=== PATIENT | male | born 1955 ===

== ENCOUNTER 2023-08-15 16:58 | Emergency (ER) | payer MEDICARE, OTHER, SELFPAY ==
[2023-08-15 17:01] VITALS: BP 149/90
--- NOTE | 2023-08-15 17:19 | ED.GENMED ---
History of Present Illness
General
Chief Complaint: Weakness
Source: patient and spouse
Exam Limitations: none
Time Seen by Provider: 08/15/23 17:07
Travel History
Have you had any contact with someone who has COVID-19?: No
Do you have any symptoms of coronavirus? Fever > 100 degrees, chills, cough, shortness of breath, sore throat, loss of taste or smell, muscle aches, or headache?: No
History of Present Illness
History of Present Illness:
68-year-old male with general fatigue and weakness progressive over 2 weeks. Very nonspecific symptoms. 10 pound weight loss. Some night sweats. Denies fever chest pain short of breath abdominal pain. 1 episode of diarrhea per day loose. No
blood or mucus. Weakness has progressed significantly over the last 2 to 3 days
Past History
Past History
ED Past Medical History: HTN, Hypercholesterolemia, NIDDM and Other (Pancreatic issues)
Review of Systems
Review of Systems
All Other Systems: Not applicable
Constitutional: Reports weight loss, fatigue and night sweats; Denies fever or chills
Respiratory: Reports no symptoms
Cardiac: Reports no symptoms
Phy Exam
Physical Exam
Physical Exam:
GENERAL: Alert and oriented in no apparent distress
EYE: Orbits normal.
NECK: Supple, no thyroid palpable
ENT: Pharynx without erythema
CARDIAC: Regular rate and rhythm without any obvious murmurs.
LUNGS: Clear breath sounds,normal
ABDOMEN: Soft, without focal tenderness or distention
NEUROLOGICAL: Alert and oriented , grossly non-focal. Good upper and lower extremity strength. Decreased patellar reflexes but symmetrical
SKIN: Warm and dry, small open scabs to both knees anteriorly. No petechia or purpura. Scabs are apparently chronic from itching per the
MUSCULOSKELETAL: No edema,no deformity.Good color
PSYCH: Normal and appropriate interaction.
Course
Orders/Labs/Results
Orders:
Orders
08/15/23 17:17
Cardiac Monitoring- Treatment ONCE
IV Insert/Care/Rem.- Treatment PRN
0.9% Sodium Chloride 1000 ml [Nss] 1,000 ml IV BOLUS
08/15/23 17:18
EKG [Electrocardiogram (*1)] Urgent
Reason for Study: Fatigue / Weakness
EKG- Treatment ONCE
08/15/23 17:22
CRP [C-Reactive Protein] Urgent
Complete Blood Count/With Diff Urgent
Comprehensive Metabolic Panel Urgent
D-Dimer Urgent
ESR [Erythrocyte Sed Rate] Urgent
Lipase Urgent
TSH Reflex To Free T4 Urgent
Troponin I Urgent
08/15/23 18:34
Iohexol [Omnipaque] See Protocol PO NOW STA
CXR2 [CR Chest - 2 Views ] Urgent
Comment:
Reason For Exam: Anorexia/weight loss/elevated lipase
08/15/23 18:59
Urinalysis Reflex To Culture Urgent
Date Specimen was Collected: 08/15/23
Time Specimen was Collected: 18:58
08/15/23 19:13
Iohexol [Omnipaque] See Protocol PO NOW STA
08/15/23 19:14
Iohexol [Omnipaque] 50 ml .ROUTE .STK-MED ONE
08/15/23 19:51
CT Abd/pel W Iv And Oral Contr Urgent
Comment:
Reason For Exam: anorexia/diarrhea
Abnormal Lab Results
08/15/23 08/15/23
17:22 18:59
MCV 79.7 L fL
(80.0-94.0)
Absolute Monos (auto) 0.7 H 10^3/uL
(0.1-0.6)
Lymphocytes % 17.5 L %
(20.5-51.1)
BUN 31 H mg/dl
(9-20)
Glucose 102 H mg/dl
(70-99)
Lipase 451 H U/L
(23-300)
Urine Ketones Trace A
(Negative)
Urine Glucose Trace A
(Negative)
08/15/23 17:22
08/15/23 17:22
Vital Signs
Initial and Last Documented VS:
Initial Vital Signs
Temp Pulse Resp BP Pulse Ox
98.3 F 89 16 149/90 98
08/15/23 17:01 08/15/23 17:01 08/15/23 17:01 08/15/23 17:01 08/15/23 17:01
Last Documented Vital Signs
Temp Pulse Resp BP Pulse Ox
98.3 F 86 18 151/85 96
08/15/23 17:01 08/15/23 19:30 08/15/23 19:30 08/15/23 19:00 08/15/23 19:30
MDM/Problems Addressed
Differential Diagnosis Includes:
Patient with a large differential for general weakness fatigue night sweats weight loss. Doubt cardiac but will be checked. Very low suspicion for pulmonary emboli. No shortness of breath or pleuritic pain. No leg pain or swelling. No risk
factors for PE. Patient has a nontender abdomen. No obvious infectious issues although this has to be entertained. Electrolyte issue. Thyroid issue. Workup is all in prior
*Radiology
Radiology exam reviewed: radiology read reviewed (Mild changes head of the pancreas. No other changes noted.)
*Pulse Oximetry
Patient hypoxic: no
*EKG
Interpreted by ED Provider?: Yes
Interpretation: abnormal
Comparison EKG: no comparison EKG present
Heart Rate: 85
Rhythm: sinus and PVC's
Mounds: normal axis
Interval: normal interval
QRS Pattern: normal QRS
Ischemia: no ischemia
*Critical Care Note
Total Time (30-74mins, 75-104mins- exclusive of procedures): Not Applicable
Update Note
Update Note:
Patient is remained medically stable and nontoxic. No obvious etiology for his rectocele weight loss night sweats. No indication for admission or further testing at this time. Copy of CT report given to patient to review with her
sales consultant insurance. He did have an MRI done last summer. Stressed that this needs follow-up.
ED Attending Note
-
Portions of this chart may have been created with voice recognition software.� Occasional wrong word or��sound alike� substitutions may have occurred due to the inherent limitations of voice recognition software.
Discharge Plan
Departure
Patient Disposition: Home (Routine Discharge)
Date of Disposition: 08/15/23
Time of Disposition: 22:40
Patient with high blood pressure during this ER visit?: Yes
Discharge Problem:
Fatigue anorexia, Inflammatory changes head of the pancrea
Instructions: Generalized Weakness (DC), BLOOD PRESSURE
Prescriptions:
No Action
atorvastatin [Lipitor] 10 mg Tablet
10 mg PO Q48H
glimepiride 2 mg Tablet
2 mg PO QPM
nifedipine [Nifedical XL] 60 mg Tablet Extended Release 24hr
60 mg PO QPM
repaglinide 0.5 mg Tablet
0.5 mg PO AC
timolol 0.5 % Drops
1 drp BOTH EYES DAILY
pantoprazole [Protonix] 40 mg Tablet,Delayed Release (Dr/Ec)
40 mg PO DAILYPRN PRN (Reason: gerd)
metformin 1,000 mg Tablet
1,000 mg PO BID
losartan 100 mg Tablet
100 mg PO DAILY
Creon 36,000-114,000- 180,000 unit Capsule,Delayed Release(Dr/Ec)
2 cap PO AC
Referrals:
UNKNOWN - PT DOES,NOT KNOW [Family Provider] -
Activity Restrictions/Additional Instructions:
As discussed, either get a repeat MRI as recommended or discussed by our radiologist or at minimal discussed this report with your sales consultant insurance
Close follow-up with your primary physician
Interventions
Interventions:
*Risk Screen - Suicide Last Done: 08/15/23 17:25
*General Assessment Last Done: 08/15/23 17:25
*Neglect/Abuse Screening Last Done: 08/15/23 17:25
ED- Fall Risk Assessment Last Done: 08/15/23 17:25
*ED COVID-19 Vaccine History Last Done: 08/15/23 17:25
ED- Cardiac Assessment Last Done: 08/15/23 17:25
ED- Neurological Assessment Last Done: 08/15/23 17:25
ED- Pulmonary Assessment Last Done: 08/15/23 17:25
Discharge Date and Time
Print Language: Marshallese
[2023-08-15] MEDS: NSS 1000 IV (17:23)
[2023-08-15 17:25] VITALS: BMI 26.7
[2023-08-15 17:34] LABS: % Basophils 0.5 % (0-2); % Eosinophils 3.5 % (0-6); % Immature Granulocytes 0.3 % (0-0.5); % Lymphocytes 17.5 % (20.5-51.1); % Monocytes 7.6 % (1.7-9.3); % Neutrophils 70.6 % (42.2-75.2); Absolute Basophils 0.1 10^3/uL (0-0.2); Absolute Eosinophils 0.3 10^3/uL (0-0.7); Absolute Lymphocytes 1.6 10^3/uL (1.2-3.4); Absolute Monocytes 0.7 10^3/uL (0.1-0.6); Absolute Neutrophils 6.5 10^3/uL (1.4-6.5); Hematocrit 41.2 % (39.0-52.0); Hemoglobin 14.4 g/dL (13.0-18.0); Mean Corpuscular Hgb 27.9 pg (27.0-31.0); Mean Corpuscular Volume 79.7 fL (80.0-94.0); Mean Platelet Volume 9.8 fL (7.4-10.4); Nucleated Red Blood Cells % 0 % (-); Platelet Count 264 10^3/uL (130-400); Red Blood Cell Count 5.17 10^6/uL (4.70-6.10); Red Cell Dist. Width 13.1 % (11.5-14.5); White Blood Cell Count 9.2 10^3/uL (4.8-10.8)
[2023-08-15 17:36] VITALS: BP 143/85
[2023-08-15 17:46] LABS: Erythrocyte Sed Rate 8 mm/hour (0-20)
[2023-08-15 17:49] LABS: D-Dimer < 0.27 ug/mlFEU (0.00-0.50)
[2023-08-15 17:50] LABS: ALT (SGPT) 16 U/L (0-50); AST (SGOT) 17 U/L (17-59); Albumin 4.1 g/dl (3.5-5.0); Alkaline Phosphatase 67 U/L (38-126); Blood Urea Nitrogen 31 mg/dl (9-20); Carbon Dioxide 22 mmol/L (22-30); Chloride 105 mmol/L (98-107); Estimated Creatinine Clearance 58 ml/min; Glucose 102 mg/dl (70-99); Lipase 451 U/L (23-300); Potassium 4.3 mmol/L (3.5-5.1); Sodium 137 mmol/L (135-145); Total Bilirubin 0.2 mg/dl (0.2-1.3); Total Protein 6.6 g/dl (6.3-8.2); eGFR > 60.00
[2023-08-15 17:54] LABS: C-Reactive Protein < 5.00 mg/L (0.0-10.00)
[2023-08-15 18:00] VITALS: BP 160/102
[2023-08-15 18:02] LABS: Troponin I < 0.012 ng/ml
[2023-08-15 18:25] LABS: TSH Reflex To Free T4 1.69 uIU/ml (0.47-4.68)
[2023-08-15 19:00] VITALS: BP 151/85
[2023-08-15] MEDS: OMNIPAQUE 50 ML PO (19:15)
[2023-08-15 19:20] LABS: Urine Albumin Negative (Neg - Trace); Urine Bilirubin Negative (Negative); Urine Character Clear (Clear); Urine Color Yellow; Urine Glucose Trace (Negative); Urine Ketone Trace (Negative); Urine Leukocyte Negative (Negative); Urine Nitrite Negative (Negative); Urine Occult Blood Negative (Negative); Urine Specific Gravity 1.015 (<1.030); Urine Urobilinogen Negative (Neg - 1+)
[2023-08-15 22:43] VITALS: BP 127/70
== END 2023-08-15 22:47 | disposition home or self-care (01) ==
LOC: EMR 16:58
PROVIDERS: EMERGENCY PHYSICIAN Emergency Medicine
DX: R53.1 Weakness (principal); I10 Essential (primary) hypertension; E11.9 Type 2 diabetes mellitus without complications; E78.00 Pure hypercholesterolemia, unspecified; I49.3 Ventricular premature depolarization
CPT/HCPCS: 99284; 96360; 71046; 74177; 80053; 81003; 83690; 84443; 84484; 85025; 85379; 85652; 86140; 93005; Q9967